=== PATIENT | female | born 1955 | race Caucasian/White ===

== ENCOUNTER 2018-10-17 09:59 | Outpatient (RCR) | payer OTHER | END 2018-12-10 11:15 | disposition home or self-care (01) | LOC: WSOT 09:59 | DX: Z02.71 Encounter for disability determination (principal) ==

== ENCOUNTER 2019-06-22 15:52 | Emergency (ER) | payer SELFPAY ==
[~2019-06-22] VITALS: Ht 167.6 cm; Wt 86.4 kg
[2019-06-22] MEDS ORDERED: FOLIC ACID 11 MG/TA1 PO (16:31)
[2019-06-22] MEDS ORDERED: SYNTHROID0.05 MG/TA PO (16:32)
[2019-06-22] MEDS ORDERED: ULTRAM 50MG TAB50 MG PO (16:33)
[2019-06-22] MEDS ORDERED: VITAMIN D31000 IU PO (16:34)
[2019-06-22 16:40] LABS: ALBUMIN 4.3 gm/dL (3.5-5.0); BILIRUBIN,TOTAL 1.4 mg/dL (0.0-1.0); CALCIUM 8.9 mg/dL (8.4-10.2); CREATININE, serum 0.73 (0.52-1.25); TOTAL PROTEIN 7.8 gm/dL (6.4-8.2)
[2019-06-22 16:42] LABS: BASO # 0.1 (0.0-0.2); BASO % 0.4 % (0.0-2.0); EOS # 0.2 (0.0-0.7); EOS % 1.2 % (0-4.0); GRAN # 10.7 (1.4-6.5); GRAN % 78.8 % (42.2-75.2); HEMATOCRIT 43.2 % (37.0-47.0); HEMOGLOBIN 14.1 g/dl (12.5-16.0); LYMPH # 1.3 (1.2-3.4); LYMPH % 9.2 % (20.0-51.0); MEAN CELL VOLUME 98 fl (80.0-100.0); MEAN CORPUSCULAR HEMOGLOBIN 32 pg (27.0-31.0); MEAN CORPUSCULAR HGB CONC 33 g/dl (33.0-37.0); MEAN PLATELET VOLUME 10.2 fl (7.4-10.4); MONO # 1.4 (0.1-0.6); PLATELET COUNT 240 K/mm3 (130-400); RED BLOOD COUNT 4.43 M/mm3 (4.10-5.30); REDCELL DISTRIBUTION WIDTH-CV 12.5 % (11.5-14.5)
[2019-06-22] MEDS ORDERED: ZOFRAN ODT4 MG PO (16:43)
[2019-06-22] MEDS ORDERED: CARAFATE 1GM1 G PO (16:43)
[2019-06-22] MEDS ORDERED: BENTYL 20MG20 MG/TAB PO (16:44)
[2019-06-22] MEDS ORDERED: IMITREX100 MG PO (16:45)
[2019-06-22] MEDS ORDERED: INDERAL LA120 MG PO (16:45)
[2019-06-22] MEDS ORDERED: AMITRIPTYLINE H10 M1 PO (16:46)
[2019-06-22 17:59] LABS: COLLECTION METHOD CLEAN CATCH
[2019-06-22 18:08] LABS: MUCOUS Present /lpf; PH 6 (5-8); SQUAMOUS EPITHELIAL 0-2 /hpf; URINE APPEARANCE Clear; URINE BACTERIA None Seen /hpf; URINE BILIRUBIN Negative (NEGATIVE); URINE BLOOD Negative (NEGATIVE); URINE COLOR Yellow; URINE GLUCOSE Negative (NEGATIVE); URINE KETONE Trace (NEGATIVE); URINE LEUKOCYTE ESTERASE Negative (NEGATIVE); URINE NITRATE Negative (NEGATIVE); URINE PROTEIN(semi-quant) Negative (NEGATIVE); URINE RBC 0-2 /hpf
[2019-06-22] MEDS ORDERED: NORCO 325 MG-51 TAB PO (18:39)
[2019-06-22] MEDS ORDERED: CIPRO 500MG TA500 MG PO (18:39)
[2019-06-22] MEDS ORDERED: ZOFRAN 4MG T4 MG/TAB PO (18:39)
[2019-06-22] MEDS ORDERED: FLAGYL500 MG PO (18:39)
[2019-06-22 19:09] VITALS: BP 118/73; PULSE 79; TEMP 98
== END 2019-06-22 20:00 | disposition home or self-care (01) ==
LOC: COL.ER 15:52
PROVIDERS: Emergency Medicine
DX: K62.3 Rectal prolapse (principal); K59.00 Constipation, unspecified; K52.9 Noninfective gastroenteritis and colitis, unspecified; Z90.89 Acquired absence of other organs; Z98.890 Other specified postprocedural states
CPT/HCPCS: J1170; J2405; J3010; J7030; Q9967

== ENCOUNTER → 2020-04-28 | Outpatient (CLI) | payer MEDICAID ==
[~2020-04-28] MED LIST: AMITRIPTYLINE H10 M1 PO; BENTYL 20MG20 MG/TAB PO; CARAFATE 1GM1 G PO; CIPRO 500MG TA500 MG PO; FLAGYL500 MG PO; FOLIC ACID 11 MG/TA1 PO; IMITREX100 MG PO; INDERAL LA120 MG PO; NORCO 325 MG-51 TAB PO; SYNTHROID0.05 MG/TA PO; ULTRAM 50MG TAB50 MG PO; VITAMIN D31000 IU PO; ZOFRAN 4MG T4 MG/TAB PO; ZOFRAN ODT4 MG PO
== END ==
LOC: MC.RAD 04-07 14:30
DX: Z12.31 Encounter for screening mammogram for malignant neoplasm of breast (principal)

== ENCOUNTER → 2020-06-23 | Outpatient (CLI) | payer MEDICAID | LOC: COL.RAD 07:28 | DX: K59.00 Constipation, unspecified (principal) | CPT/HCPCS: A9541 ==

== ENCOUNTER → 2020-06-28 | Outpatient (CLI) | payer MEDICAID | LOC: COL.RAD 07:33 | DX: K59.00 Constipation, unspecified (principal) ==

== ENCOUNTER → 2021-10-10 | Outpatient (CLI) | payer MEDICARE | LOC: MC.RAD 08-08 09:00 | DX: Z12.31 Encounter for screening mammogram for malignant neoplasm of breast (principal) ==

== ENCOUNTER 2022-12-11 07:00 | Day surgery (SDC) | payer MEDICARE, MEDICAID ==
[~2022-12-11] VITALS: Ht 167.6 cm; Wt 81.3 kg
[2022-12-11] MEDS ORDERED: LEXAPRO 10MG10 MG PO (07:38)
[2022-12-11] MEDS ORDERED: PEPCID 20MG TAB20 MG PO (07:39)
[2022-12-11] MEDS ORDERED: TOPAMAX 25MG25 M1 PO (07:40)
[2022-12-11] MEDS ORDERED: CIMZIA200 MG/ML SQ (07:41)
[2022-12-11] MEDS ORDERED: TRULANCE3 MG PO (07:41)
[2022-12-11] MEDS ORDERED: REGLAN 5MG T5 MG/TAB PO (07:42)
[2022-12-11] MEDS ORDERED: ASPIRIN E.C. 8181 MG PO (07:43)
[2022-12-11] MEDS ORDERED: SYNTHROID0.075 MG/T (07:44)
[2022-12-11] MEDS ORDERED: VITAMIN D 400400 IU PO (07:45)
[2022-12-11 08:56] VITALS: BP 121/78; PULSE 59; TEMP 97.6
[2022-12-11 10:23] VITALS: BP 104/67; PULSE 53; TEMP 97.8
--- NOTE | 2022-12-11 10:30 | NUR ---
1030 THIS NURSE TOOK REPORT FROM RAMSEY Fitzgerald RN. THIS NURSE INTRODUCED SELF TO PATIENT AND COMPLETED PHYSICAL ASSESSMENT. PATIENT HAS A 4X4 WITH MEDIPORE TO LEFT LOWER ABDOMEN, CDI. PATIENT IS DROWSY BUT ALERTS TO VERBAL STIMULI. PATIENT BROTHER IS IN ROOM. RESPIRATIONS EVEN AND UNLABORED. VITAL SIGNS OBTAINED. PATIENT DOES NOT HAVE ANY PAIN AT THIS TIME. PATIENT REQUESTED WATER. NO DIFFICULTIES SWALLOWING. 1050 DISCONTINUED IV FROM RIGHT FOREARM WITH NO DIFFICULTIES. 1055 THIS NURSE REVIEWED DISCHARGE INSTRUCTIONS WITH PATIENT. PATIENT VERBALIZED UNDERSTANSING. 1100 THIS NURSE ASSISTED PATIENT TO RESTROOM. 1105 PATIENT STATES THAT SHE IS HAVING PAIN TO HER ABDOMEN AND REQUESTED PRN PAIN MEDICATION. THIS NURSE ADMINISTERED PRN PO PAIN PILL PER MD ORDER. 1120 PATIENT TOLERATED PAIN MEDICATION WELL, STATING THAT HER PAIN HAS DECREASED TO A 2/10. PATIENT DISCHARGES FROM UNIT VIA WHEELCHAIR IN STABLE CONDITION.
[2022-12-11] MEDS ORDERED: NORCO 325 MG-51 TAB PO (10:35)
[2022-12-11 10:45] VITALS: BP 104/67; PULSE 51
[2022-12-11 11:00] VITALS: BP 122/74; PULSE 44
== END 2022-12-11 11:20 | disposition home or self-care (01) ==
LOC: SDCO 07:00
DX: K40.90 Unilateral inguinal hernia, without obstruction or gangrene, not specified as recurrent (principal); M06.9 Rheumatoid arthritis, unspecified
CPT/HCPCS: J0690; J2704; J3010; J7120

== ENCOUNTER → 2024-04-28 | Outpatient (CLI) | payer MEDICARE ==
[~2024-04-28] MED LIST changes: +ASPIRIN E.C. 8181 MG PO; +CIMZIA200 MG/ML SQ; +LEXAPRO 10MG10 MG PO; +PEPCID 20MG TAB20 MG PO; +REGLAN 5MG T5 MG/TAB PO; +SYNTHROID0.075 MG/T; +TOPAMAX 25MG25 M1 PO; +TRULANCE3 MG PO; +VITAMIN D 400400 IU PO
== END ==
LOC: MC.RAD 12:40
DX: Z12.31 Encounter for screening mammogram for malignant neoplasm of breast (principal)